=== PATIENT | female | born 1950 | race Caucasian/White ===

== ENCOUNTER → 2017-07-24 | Outpatient (CLI) | payer OTHER | END | disposition home or self-care (01) | LOC: LAB 13:00 | DX: E83.52 Hypercalcemia (principal) ==

== ENCOUNTER 2021-05-24 10:00 | Emergency (ER) | payer OTHER ==
[~2021-05-24] VITALS: Ht 162.5 cm; Wt 77.1 kg
[2021-05-24 11:00] LABS: NEUT # 3.3 10*3/uL (2.3-7.9); PLATELET COUNT AUTOMATED 119 10*3/uL (130-400)
[2021-05-24 11:03] LABS: HEMATOCRIT 45.2 % (37.0-47.0); LYMPH # 0.5 10*3/uL (1.3-4.4); LYMPH % 10.2 % (27.0-41.0); MEAN CELL VOLUME 92.8 fl (81.0-99.0); MEAN CORPUSCULAR HGB CONC 32.3 g/dl (33.0-37.0); MEAN PLATELET VOLUME 10.7 fl (9.6-12.3); MONO # 0.6 10*3/uL (0.1-1.0); MONO % 14.1 % (3.0-9.0); NEUT % 75.2 % (47.0-73.0); RED BLOOD COUNT 4.87 10*6/uL (4.10-5.10); RED CELL DISTRI WIDTH 13.7 % (0-14.5); WHITE BLOOD COUNT 4.4 10*3/uL (4.8-10.8)
[2021-05-24 11:17] LABS: ALBUMIN 3.3 gm/dl (3.1-4.5); ALKALINE PHOSPHATASE 106 U/L (45-117); BUN 13 mg/dl (7-24); CHLORIDE 109 mmol/L (98-107); CREATININE 1.13 mg/dL (0.55-1.02); POTASSIUM 3.8 mmol/L (3.5-5.1); SGOT/AST 35 IU/L (3-35); SGPT/ALT 36 U/L (12-78); SODIUM 139 mmol/L (136-145); TOTAL PROTEIN 6.8 gm/dL (6.4-8.2)
[2021-05-24 11:26] LABS: TROPONIN I < 0.015 ng/ml (<0.045)
[2021-05-24] MEDS ORDERED: LOVASTATIN20 MG PO (12:31)
[2021-05-24] MEDS ORDERED: Synthroid,Levo25 MCG PO (12:32)
[2021-05-24] MEDS ORDERED: MELOXICAM15 MG PO (12:33)
[2021-05-24] MEDS ORDERED: BIOTIN5000 MC1 SL (12:34)
[2021-05-24] MEDS ORDERED: VAZALORE81 MG PO (12:34)
[2021-05-24] MEDS ORDERED: [UNRECOGNIZED DRUG - OTHER] PO (12:34)
[2021-05-24] MEDS ORDERED: OMEPRAZOLE MAGN20 MG PO (12:35)
[2021-05-24] MEDS ORDERED: PROBICHEW 21 B1 EACH PO (12:35)
== END 2021-05-24 12:07 | disposition home or self-care (01) ==
LOC: ED 10:00
PROVIDERS: Emergency Medicine
DX: U07.1 COVID-19 (principal); E86.0 Dehydration; Z90.711 Acquired absence of uterus with remaining cervical stump